=== PATIENT | female | born 1955 | race Caucasian/White ===

== ENCOUNTER 2017-05-14 10:37 | Day surgery (SDC) | payer BC ==
[~2017-05-14] VITALS: Ht 157.5 cm; Wt 56.2 kg
[~2017-05-14 10:37] MED LIST: ALPRAZOLAM0.25 M2 PO; CIPRO500 MG PO; CLARITIN,ALAVAR10 MG PO; COMPAZINE10 MG PO; CYMBALTA60 MG PO; DELTASONE20 M1 PO; DEXAMETHASONE4 MG PO; LEVOTHYROXINE88 MCG PO; METRONIDAZOLE500 MG PO; NICODERM CQ1 EAC1 TD; NYSTATIN100000 UN1 PO; OMEPRAZOLE40 M1 PO; RANITIDINE HCL150 M1 PO; ROSUVASTATIN CA20 MG PO; SINUS PE DECONG10 MG PO; STIOLTO RESPIMAT4 GM IH; ZANTAC150 MG PO; ZOFRAN4 MG PO
[2017-05-14 10:56] VITALS: BP 116/64
[2017-05-14] MEDS ORDERED: PERCOCET 5/31 TABLET PO (16:17)
[2017-05-14 20:04] VITALS: BP 98/57
[2017-05-15 00:23] VITALS: BP 99/55
[2017-05-15 03:55] VITALS: BP 101/52
[2017-05-15 07:20] VITALS: BP 116/56
[2017-05-15 11:32] VITALS: BP 101/57
== END 2017-05-15 16:48 | disposition home or self-care (01) ==
LOC: SDC 10:37 → ENRESERV 18:59 → 2EASTP 19:00 → 2SOUTH 19:00 → ENRESERV 19:21 → 2EASTP 19:38
PROC: 0DQL4ZZ Repair Transverse Colon, Percutaneous Endoscopic Approach (ICD-10-PCS; principal; 2017-05-14)
PROC: 0WQF4ZZ Repair Abdominal Wall, Percutaneous Endoscopic Approach (ICD-10-PCS; principal; 2017-05-14)
DX: K43.9 Ventral hernia without obstruction or gangrene (principal); Z90.710 Acquired absence of both cervix and uterus; Z92.21 Personal history of antineoplastic chemotherapy; S36.591A Other injury of transverse colon, initial encounter; K66.0 Peritoneal adhesions (postprocedural) (postinfection); K91.71 Accidental puncture and laceration of a digestive system organ or structure during a digestive system procedure; Y83.8 Other surgical procedures as the cause of abnormal reaction of the patient, or of later complication, without mention of misadventure at the time of the procedure; Y92.538 Other ambulatory health services establishments as the place of occurrence of the external cause; Z85.43 Personal history of malignant neoplasm of ovary; E11.9 Type 2 diabetes mellitus without complications; J43.9 Emphysema, unspecified; F17.200 Nicotine dependence, unspecified, uncomplicated; Z79.82 Long term (current) use of aspirin; Z83.3 Family history of diabetes mellitus; Z82.49 Family history of ischemic heart disease and other diseases of the circulatory system; Z88.0 Allergy status to penicillin
CPT/HCPCS: 94799; C1781; G0378; J0330; J0690; J1100; J1170; J1885; J2405; J2710; J3010; J7120